=== PATIENT | male | born 1970 | race Caucasian/White ===

== ENCOUNTER → 2021-08-24 08:14 | Outpatient (BNVA) | payer SELFPAY | PROVIDERS: Visit Provider Podiatrist Foot & Ankle Surgery | DX: M79.672 Pain in left foot (principal) | CPT/HCPCS: 73630 ==

== ENCOUNTER 2024-10-24 21:48 | Emergency (ER) | payer SELFPAY ==
[2024-10-24 21:51] VITALS: BP 206/102; PULSE 72; RESP 18; TEMP 36.6; O2SAT 97; BMI 31.1
--- NOTE | 2024-10-24 22:05 | ECG_ITS ---
[facility] Test Date: 2024-10-24 Pat Name: Narendra Mott Department: Room: Gender: Male Noc Analyst: : 1970 Requested By: Hardy Myles Order Number: [id number] Diane MD: PUSHPA JARRETT Measurements Intervals [place] Rate: 64 P: 61 UT: 168 QRS: 60 QRSD: 108 T: 65 QT: 409 QTc: 425 Interpretive Statements SINUS RHYTHM ST ELEVATION, PROBABLY EARLY REPOLARIZATION [ST ELEVATION WITH NORMALLY INFLECTED T-WAVE] TYPE 3 BRUGADA PATTERN (NON-DIAGNOSTIC) [COVED/SADDLEBACK ST ELEVATION > 0.1mV IN 2 OF V1-3] No previous ECG available for comparison Electronically Signed On 10-25-2024 18:40:28 [employer] D[employer]ER OPERATOR by PUSHPA JARRETT [email or web address]
--- NOTE | 2024-10-24 22:20 | XRR_ITS ---
PROCEDURE INFORMATION: Exam: XR Chest Exam date and time: 10/24/2024 10:23 PM Age: 54 years old Clinical indication: Patient HX: C/O hypertension; Additional info: HTN TECHNIQUE: Imaging protocol: Radiologic exam of the chest. Views: 1 view. COMPARISON: No relevant prior studies available. FINDINGS: Lungs: Unremarkable. No consolidation. Pleural spaces: Unremarkable. No pleural effusion. No pneumothorax. Heart/Mediastinum: Unremarkable. No cardiomegaly. Bones/joints: Unremarkable. XR/XR chest 1V portable [id number] IMPRESSION: No acute findings.
--- NOTE | 2024-10-24 22:27 | PC.NURSE ---
EKG was handed to Dr Myles at time of triage by this nurse. No further orders were received at that time.
[2024-10-24 22:31] VITALS: BP 172/100; PULSE 69; RESP 18; O2SAT 99
[2024-10-24 22:38] VITALS: BP 172/100; PULSE 64; RESP 16; O2SAT 99
[2024-10-24 22:40] LABS: Basophils # 0.1 10^3/uL (0.0-0.1); Basophils % 0.8 %; Eosinophils # 0.1 10^3/uL (0.0-0.8); Eosinophils % 1.7 %; Hematocrit 40.5 % (37-53); Lymphocytes # 2.2 10^3/uL (0.8-4.8); Lymphocytes % 37.1 %; Mean Corpuscular HGB Conc 32.6 g/dL (30-55); Mean Corpuscular Hemoglobin 28.1 pg (27-33); Mean Corpuscular Volume 86.4 fl (82-101); Mean Platelet Volume 10.2 fL (7.4-10.4); Monocytes # 0.7 10^3/uL (0.2-0.9); Monocytes % 10.8 %; Neutrophils # 2.98 10^3/uL (1.8-7.7); Neutrophils % 49.3 %; Nucleated Red Blood Cells % 0 %; Platelet Count 259 10^3/cmm (157-399); Red Blood Count 4.69 10^6/uL (3.85-5.65); White Blood Count 6.04 10^3/uL (3.29-11.43)
[2024-10-24 22:53] LABS: Troponin(5th) Baseline 9 ng/L (0-15)
[2024-10-24 23:00] LABS: Anion Gap 16.4 (5-19); Blood Urea Nitrogen 16 mg/dL (6-20); Calcium 9.7 mg/dL (8.5-10.5); Carbon Dioxide 25 mmol/L (22-29); Chloride 104 mmol/L (98-107); Creatinine Clr Calc Pharmacy 73.0662; Glomerular Filtration Rate 52.8 mL/min (90-130); Glucose 100 mg/dL (65-115); Osmolality Calculated 293 mOsm/kg (285-295); Potassium 4.4 mmol/L (3.5-5.1); Sodium 141 mmol/L (136-145)
[2024-10-24 23:02] LABS: NT Pro B Type Natriuretic Pept 38 pg/mL (0-125)
[2024-10-24] MEDS: hydroCHLOROthiazide 25 mg Tablet 12.5 MG PO (23:24)
[2024-10-24] MEDS: lisinopril 10 mg Tablet PO (23:24)
[2024-10-24 23:25] VITALS: BP 201/104
[2024-10-24] MEDS: cloNIDine 0.1 mg Tablet PO (23:25)
[2024-10-24 23:28] VITALS: BP 201/104; PULSE 74; RESP 19; O2SAT 100
[2024-10-25 00:32] VITALS: BP 144/93; PULSE 64; RESP 14; O2SAT 100
--- NOTE | 2024-10-25 00:53 | PC.NURSE ---
Received report from Noah SANCHEZ at this time.
[2024-10-25 01:00] VITALS: BP 132/79; PULSE 64; O2SAT 96
[2024-10-25 01:05] LABS: Troponin 5 2HR 9.72 ng/L (0-15); Troponin 5 2HR Delta 0.72 ABS# (0-10)
[2024-10-25 01:19] VITALS: BP 142/96; PULSE 58; RESP 18; O2SAT 99
--- NOTE | 2024-10-25 01:43 | ED_ITS ---
HPI - Chest Pain 2 General: Chief Complaint: Chest Pain Stated Complaint: High BP doc sent heart murmur Time Seen by Provider: 10/24/24 22:06 History of Present Illness: This patient is a 54-year-old white male who presents to the emergency department with palpitations and high blood pressure. Patient states he felt his heart skipping a beat yesterday. He states each time he felt this sensation and triggered a cough. States his symptoms were worse this morning. Patient went to the urgent care clinic this morning and was noted to have high blood pressure. States his systolic blood pressure was in the 190s. He was instructed to follow-up with his primary care physician for management. He is not having any chest pain or shortness of breath. He has no chronic medical problems. Associated symptoms: Reports palpitations Related Data Previous Rx's Medication Instructions Recorded lisinopril 10 1 tab PO DAILY #30 tabs 10/25/24 mg-hydrochlorothiazide 12.5 mg tablet (Zestoretic) Allergies Allergy/AdvReac Type Severity Reaction Status Date / Time No Known Allergies Allergy Verified 10/24/24 22:05 Review of Systems 2 General: Reports: 10 or more systems reviewed and unremarkable except in HPI and below Card: Reports: palpitations PFSH ED 2 PFSH: Social History Smoking and tobacco/nicotine status: never used tobacco/nicotine Physical Exam 2 Const: COMMON NORMALS: no acute distress, patient oriented x3 and no limitations GENERAL APPEARANCE: cooperative and comfortable HENMT: COMMON NORMALS: normocephalic, atraumatic, Normal nasal mucous membranes and turbinates present, moist oral mucous membranes and oropharynx normal HEAD & SCALP: normal to inspection, normocephalic and atraumatic F JUANA & SINUS: normal facial exam NOSE: Normal nasal mucous membranes and turbinates present Eye: COMMON NORMALS: Equal, round and reactive pupils present, EOMs intact bilaterally and conjunctivae normal GENERAL EYE: appearance normal, both eyes and all related structures CONJUNCTIVA: Yes conjunctivae normal PUPIL: Yes Equal, round and reactive pupils present Neck/C-Spine: COMMON NORMALS: supple and no JVD Chest: COMMONS NORMALS: normal inspection of the chest Resp: COMMON NORMALS: normal respiratory effort and clear to auscultation bilaterally AUSCULTATION: clear to auscultation bilaterally Cardio: COMMON NORMALS: no JVD, regular rate, regular rhythm, No gallops present (Cardio), No murmurs present (Cardio) and No rub (Cardio) RATE: r egular rate RHYTHM: regular rhythm GI: COMMON NORMALS: Normal to inspection, nondistended, normoactive bowel sounds present, Soft to palpation and non-tender AUSCULTATION: Yes normoactive bowel sounds PALPATION: Yes Soft to palpation : COMMON NORMALS: Yes no CVA tenderness BLADDER/KIDNEY EXAM: Yes no CVA tenderness Back/Pelvis: COMMON NORMALS: no CVA tenderness and thoracic and lumbar spine normal to inspection Extremity: COMMON NORMALS: normal to inspection Neuro: COMMON NORMALS: patient oriented x3 and CN's II-XII intact bilaterally Psych: COMMON NORMALS: mental status grossly normal, Normal thought process present and cooperative THOUGHT PROCESS: Normal thought process present Skin: COMMON NORMALS: no rashes or lesions noted, turgor normal and no jaundice GENERAL SKIN EXAM: no rashes or lesions noted and turgor normal Course 2 Vital Signs: Vital signs: Vital Signs Temperature 97.8 F 10/24/24 21:51 Pulse Rate 58 L 10/25/24 01:19 Respiratory Rate 18 10/25/24 01:19 Blood Pressure 142/96 10/25/24 01:19 Pulse Oximetry 99 10/25/24 01:19 Oxygen Delivery Me thod Room Air 10/25/24 00:32 MDM - Chest Pain Medical Decision Making Patient's blood pressure was 200s over 100s. We did administer 0.1 mg clonidine p.o. as well as 10 mg of lisinopril p.o. and 12.5 mg of hydrochlorothiazide p.o. Blood pressure came down nicely to the 130s over 70s. Patient's cardiac workup was normal. Baseline troponin was 9 with a 2-hour level of 9. EKG did not reveal any acute ST segment abnormalities. Chest x-ray was normal. Patient was asymptomatic throughout his ER stay. He was discharged in stable condition with prescriptions for lisinopril and hydrochlorothiazide. I recommended he check his blood pressure 3 times per day and record the results. Follow-up with primary care physician in 1 week for recheck and ongoing management of his hypertension. He was discharged with his in stable condition. Lab Data 10/24/24 22:10/24/24: Radiology Impressions Chest X-Ray 10/24/24 22: IMPRESSION: No acute findings. Laboratory Results WBC 6.04 10^3/uL (3.29-11.43) 10/24/24: RBC 4.69 10^6/uL (3.85-5.65) 10/24/24: Hgb 13.20 g/dL (11.27-16.99) 10/24/24: Hct 40.5 % (37-53) 10/24/24: MCV 86.4 fl (82-101) 10/24/24: MCH 28.1 pg (27-33) 10/24/24: MCHC 32.6 g/dL (30-55) 10/24/24: RDW 13.0 % (12.1-15.1) 10/24/24: Plt Count 259 10^3/cmm (157-399) 10/24/24: MPV 10.2 fL (7.4-10.4) 10/24/24: Neut % (Auto) 49.3 % 10/24/24: Lymph % (Auto) 37.1 % 10/24/24: [place] % (Auto) 10.8 % 10/24/24: Eos % (Auto) 1.7 % 10/24/24: Baso % (Auto) 0.8 % 10/24/24: Neut # (Auto) 2.98 10^3/uL (1.8-7.7) 10/24/24: Lymph # (Auto) 2.2 10^3/uL (0.8-4.8) 10/24/24: [place] # (Auto) 0.7 10^3/uL (0.2-0.9) 10/24/24 Eos # (Auto) 0.1 10^3/uL (0.0-0.8) 10/24/24: Baso # (Auto) 0.1 10^3/uL (0.0-0.1) 10/24/24: Nucleated RBC % (auto) 0 % 10/24/24 22: Nucleated RBCs # 0.0 /100WBC 10/24/24 22:29 Sodium 141 mmol/L (136-145) 10/24/24 22: Potassium 4.4 mmol/L (3.5-5.1) 10/24/24 22:29 Chloride 104 mmol/L (98-107) 10/24/24 22: Carbon Dioxide 25 mmol/L (22-29) 10/24/24 22: Anion Gap 16.4 (5-19) 10/24/24 22: BUN 16 mg/dL (6-20) 10/24/24 22: Creatinine 1.4 mg/dL (0.7-1.2) H 10/24/24 22: GFR Calculation 52.8 mL/min (90-130) L 10/24/24 22: Glucose 100 mg/dL (65-115) 10/24/24 22: Calculated Osmolality 293 mOsm/kg (285-295) 10/24/24 22: Calcium 9.7 mg/dL (8.5-10.5) 10/24/24 22:29 Troponin T Baseline 9 ng/L (0-15) 10/24/24 22:29 Troponin T 120 Minute 9.72 ng/L (0-15) 10/25/24 00:31 Delta Troponin T 0.72 ABS# (0-10) 10/25/24 00:31 NT-Pro-B Natriuret Pep 38 pg/mL (0-125) 10/24/24 22:29 All radiology interpretation(s) finalized by discharge Discharge Plan Discharge Patient Disposition: Home Clinical Impression: Palpitations Hypertension Qualifiers: Hypertension type: unspecified Qualified Code(s): I10 - Essential (primary) hypertension Condition: Stable Prescriptions: New lisinopril-hydrochlorothiazide [Zestoretic] 10-12.5 mg tablet 1 tab PO DAILY Qty: 30 0RF Discharge Orders: Discharge ED (Routine); Ordered 10/25/24 Ordered By: Hardy Myles Referrals: Luc Anderson DO [Primary Care Provider] - Patient Instructions: Hypertension Activity Restrictions/Additional Instructions: Follow-up with primary care physician in 1 week for recheck and ongoing management of your hypertension. 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
== END 2024-10-25 01:22 | disposition home or self-care (01) ==
PROVIDERS: Emergency Provider Emergency Medicine; PCP Electrodiagnostic Medicine
DX: R00.2 Palpitations (principal); I10 Essential (primary) hypertension
CPT/HCPCS: 71045; 80048; 83880; 84484; 85025; 93005; 99285